=== PATIENT | male | born 1975 | race Hispanic/Latino ===

== ENCOUNTER 2022-12-12 17:34 | Emergency (ER) | payer SELFPAY ==
[2022-12-12 17:55] VITALS: BP 150/78; PULSE 72; RESP 18; TEMP 36.8; O2SAT 99
--- NOTE | 2022-12-12 18:13 | ED.URI ---
HPI - URI/Sore Throat General Chief Complaint: Upper Respiratory Infection Stated Complaint: Sore Throat History of Present Illness HPI Narrative: Pt is a 47 y/o male, [place] speaking, using licensed funeral director and embalmer, presents to with 10 day hx of URI symptoms, dry cough, non productive, worse at night disrupting sleep, with voice hoarseness. He denies associated rhinorrhea, nasal congestion or fevers. He has no associated CP, SOB, abdominal pain, NVDC or urinary symptoms. He has taken OTC cold medications without relief, prompting his visit. He denies any other associated symptoms or modifying factors. Related Data Allergies Allergy/AdvReac Type Severity Reaction Status Date / Time No Known Allergies Allergy Verified 12/12/22 18:08 Review of Systems Constitutional: Constitutional: Reports as per HPI and Reports no additional constitutional complaints Respiratory: Respiratory: Reports as per HPI and Reports no additional respiratory complaints Musculoskeletal: Musculoskeletal: Reports no additional musculoskeletal complaints and Reports as per HPI Exam Const: General: healthy appearing, no acute distress and alert Nutritional Appearance: well nourished Orientation/consciousness: patient oriented x3 Limitations: language barrier (licensed funeral director and embalmer used throughout exam) HENMT: Head: normal to inspection Ears: external ears normal, EAC's normal and TM abnormal (serous effusion bilaterally ) Face/Nose/Sinus: Normal external nose present and Normal nares present Face and sinus: normal facial exam Mouth: Yes Normal oral and palatal mucosa present and Yes lip normal Throat: posterior oropharynx normal and uvula midline Eyes: Conjunctivae: conjunctivae normal Pupils: Equal, round and reactive pupils present EOM: EOMs intact bilaterally Direct Ophthalmoscopy: no photophobia Neck: Neck: normal visual inspection Resp: Effort & Inspection: normal respiratory effort Auscultation: clear to auscultation bilaterally Other: spasmodic dry cough noted Cardio: Rate: regular rate Rhythm: regular rhythm Skin: General skin exam: normal color Rashes: no rashes Neuro: General: patient oriented x3, moves all extremities, no meningeal signs, no focal motor deficits and CN's II-XI intact bilaterally Cranial nerves: Yes Nystagmus not present Speech: normal speech Gait exam (Neuro): Normal gait present Extrem: General: normal to inspection Course Course Emergency Course: suspect post viral cough/URI, will treat with short steroid course and cough suppressant, PCP FU in 3-5 days if symptoms are not improving. Level of Care: Express Care Visit ([id number]) Vital Signs Vital signs: Vital Signs Temperature 36.8 C 12/12/22 17:55 Pulse Rate 72 12/12/22 17:55 Respiratory Rate 18 12/12/22 17:55 Blood Pressure 150/78 H 12/12/22 17:55 Pulse Oximetry 99 12/12/22 17:55 Oxygen Delivery Room Air 12/12/22 17:55 Temperature 36.8 C 12/12/22 17:55 Pulse Rate 72 12/12/22 17:55 Respiratory Rate 18 12/12/22 17:55 Blood Pressure 150/78 H 12/12/22 17:55 Pulse Oximetry 99 12/12/22 17:55 Oxygen Delivery Room Air 12/12/22 17:55 MDM - URI/Sore Throat MDM Narrative Medical decision making narrative: prednisone, promethazine DM, PCP FU Differential Diagnosis Differential diagnosis: Likely upper respiratory infection, otitis media, viral infection, bronchitis and other (serous OM) Discharge Plan Discharge Clinical Impression: Post-viral cough syndrome Upper respiratory infection Qualifiers: URI type: unspecified viral URI Qualified Code(s): J06.9 - Acute upper respiratory infection, unspecified Patient Disposition: Home, Self-Care Condition: Stable Instructions: Antibiotic Form, Upper Respiratory Infection (ED) Additional Instructions: COMPLETE STEROIDS DIRECTED. TAKE COUGH SUPPRESSANT PRESCRIBED. SEE YOUR DOCTOR IN 3-5 DAYS IF SYMPTOMS ARE NOT IMPROVING. Patient Language: Danish Prescriptions
== END 2022-12-12 18:25 | disposition home or self-care (01) ==
PROVIDERS: Emergency Provider Nurse Practitioner Family
DX: G93.31 Postviral fatigue syndrome (principal); J06.9 Acute upper respiratory infection, unspecified
CPT/HCPCS: 99203; G0463